=== PATIENT | male | born 1995 | race Caucasian/White ===

== ENCOUNTER 2019-06-30 18:51 | Emergency (ER) | payer OTHER ==
[~2019-06-30] VITALS: Ht 170.2 cm; Wt 93.9 kg
[2019-06-30 18:54] VITALS: BP 119/79
--- NOTE | 2019-06-30 19:02 | NUR ---
PT TAKEN TO BED 02 VIA WHEELCHAIR.
--- NOTE | 2019-06-30 19:02 | NUR ---
Patient transferred to bed 2 via wheelchair by tech. RN evaluating patient at bedside.
--- NOTE | 2019-06-30 19:09 | NUR ---
PT PRESENTS TO THE ED WITH C/O LEFT SECOND TOE PAIN. PER PATIENT HE STEPPED ON A GARDEN HOSE LAST NIGHT WHICH RESULTED TO HIS SECOND TOE BEING "CROOOKED." PT STATES HE TRIED TO STRAIGHTEN HIS TOE BUT PAIN WORSENED. PT RATES PAIN 2/10 AT REST BUT REPORTS INCREASED PAIN WITH AMBULATION. XRAY BEING DONE AT BEDSIDE
--- NOTE | 2019-06-30 19:54 | NUR ---
ORTHO SHOE SIZE MENS MEDIUM PLACED ON PT L FOOT AND FITTED TO SIZE. +CSM
--- NOTE | 2019-06-30 19:56 | NUR ---
PT GIVEN INSTRUCTION ON PROPER USE OF CRUTCHES. CRUTCHES FITTED TO PT HEIGHT AND ARM LENGTH. PT GIVEN INSTRUCTION ON USE OF CRUTCHES, INCLUSING SITTING TO STANDING AND VICE VERSA, AND WALKING. PT DEMONSTRATED SAFE USE FOR APPROXIMATELY 40 FEET, PT STATED HE FELT COMFORTABLE WITH USE.
[2019-06-30 20:30] VITALS: BP 119/79
--- NOTE | 2019-06-30 20:31 | NUR ---
Patient discharged with recent v/s stable by Dr. Beyer. Written and verbal after care instructions given and explained by Dr. Beyer. Patient alert, oriented and verbalized understanding of instructions. Ambulatory with steady gait. All questions addressed prior to discharge by Dr. Beyer. ID band removed by Dr. Beyer. Patient advised to follow up with PMD by Dr. Beyer. Rx of NAPROSYN given by Dr. Beyer. Patient educated on indication of medication including possible reaction and side effects by Dr. Beyer. Opportunity to ask questions provided and answered by Dr. Beyer.
== END 2019-06-30 20:30 | disposition home or self-care (01) ==
LOC: MED 18:51
DX: M84.377A Stress fracture, right toe(s), initial encounter for fracture (principal); W18.39XA Other fall on same level, initial encounter; Y93.89 Activity, other specified; Y92.89 Other specified places as the place of occurrence of the external cause; Y99.8 Other external cause status; J45.909 Unspecified asthma, uncomplicated
CPT/HCPCS: 73660; 99283

== ENCOUNTER 2019-08-19 08:22 | Emergency (ER) | payer OTHER ==
[~2019-08-19] VITALS: Ht 170.2 cm; Wt 94.8 kg
[2019-08-19 08:33] VITALS: BP 120/68
--- NOTE | 2019-08-19 08:51 | NUR ---
24 Y/O M C/O RUNNY NOSE, COUGH, DIFFICULTY TAKING A DEEP BREAT THIN X1 DAY. PT HAS ASTHMA, USES ALBUTERAL INHALER. PT LUNG SOUNDS CLEAR THROUGHOUT, PRODUCTIVE COUGH, NOSE DRAINING CLEAR FLUID. PT STATES NO PAIN, VS STABLE O2 98%. PT PUT IN GOWN, POSITIONED HIGH FOWLERS, BED LOWERED X1 SIDE RAIL IN PLACE. MOTHER AT BEDSIDE. NKA MEDHX: ASTHMA
[2019-08-19] MEDS ORDERED: ALBUTEROL 0.083% 2.5 MG/3 ML NEBU INH ONE (09:25)
--- NOTE | 2019-08-19 09:48 | NUR ---
FLU SWAB COLLECTED, SENT TO LAB
--- NOTE | 2019-08-19 10:24 | NUR ---
PT AMBULATED TO RESTROOM WITHOUT DIFFICULTY. INFORMED WAITING FOR TEST RESULTS. MOTHER AT BEDSIDE.
[2019-08-19] MEDS ORDERED: KETOROLAC 30 MG/ML VIAL IM ONE (10:25)
--- NOTE | 2019-08-19 10:41 | NUR ---
PT REFUSED IM INJECTION OF TORADAL.
[2019-08-19] MEDS ORDERED: ALBUTEROL SULFATE/IPRATROPIU 3 ML SOL IH ONE (11:10)
--- NOTE | 2019-08-19 11:15 | NUR ---
RT AT BEDSIDE GIVING BREATHING TREATMENT.
[2019-08-19 11:51] VITALS: BP 120/68
--- NOTE | 2019-08-19 11:51 | NUR ---
Patient discharged with v/s stable. Written and verbal after care instructions given and explained. Patient alert, oriented and verbalized understanding of instructions. Ambulatory with steady gait. All questions addressed prior to discharge. ID band removed. Patient advised to follow up with PMD. Rx of TESSIE PHAM, PREDISNOSNE given. Patient educated on indication of medication including possible reaction and side effects. Opportunity to ask questions provided and answered.
== END 2019-08-19 11:51 | disposition home or self-care (01) ==
LOC: MED 08:22
DX: J45.909 Unspecified asthma, uncomplicated (principal)
CPT/HCPCS: 71045; 87804; 94640; 99284; J7613; J7620; Q0092; J1885